=== PATIENT | male | born 1980 | race Caucasian/White ===

== ENCOUNTER 2017-11-26 12:26 | Emergency (ER) | payer OTHER ==
[2017-11-26 12:38] VITALS: BP 126/92; BMI 33.3
[2017-11-26] MEDS ORDERED: KETOROLAC TROMETHAMINE 60 MG/2 ML VIAL IM ONE (13:23)
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
[2017-11-26] MEDS ORDERED: CYCLOBENZAPRINE HCL 10 MG TABLET (FP) ONE (13:27)
[2017-11-26] MEDS ORDERED: KETOROLAC TROMETHAMINE 60 MG/2 ML VIAL ONE (13:27)
[2017-11-26 13:43] VITALS: PULSE 87; TEMP 99.3
[2017-11-26] MEDS ORDERED: CYCLOBENZAPRINE HCL 5 MG TABLET PO SCH (14:00)
== END 2017-11-26 13:56 | disposition home or self-care (01) ==
LOC: JERFT 12:26 → JER 12:26
PROC: 3E0233Z Introduction of Anti-inflammatory into Muscle, Percutaneous Approach (ICD-10-PCS; principal; 2017-11-26)
DX: S39.012A Strain of muscle, fascia and tendon of lower back, initial encounter (principal); X50.0XXA Overexertion from strenuous movement or load, initial encounter; Y93.89 Activity, other specified; Y92.89 Other specified places as the place of occurrence of the external cause; Y99.0 Civilian activity done for income or pay
CPT/HCPCS: 99282-25

== ENCOUNTER 2022-05-07 14:39 | Emergency (ER) | payer OTHER ==
[2022-05-07 15:01] VITALS: BP 130/92; PULSE 109; RESP 18; TEMP 98; BMI 30.8
[2022-05-07] MEDS ORDERED: ACETAMINOPHEN 500 MG TABLET (FP) PO ONE (15:46)
[2022-05-07] MEDS ORDERED: ACETAMINOPHEN 500 MG TABLET (FP) ONE (16:30)
[2022-05-07] MEDS ORDERED: KETOROLAC TROMETHAMINE 30 MG/1 ML VIAL IM ONE (16:35)
[2022-05-07] MEDS ORDERED: KETOROLAC TROMETHAMINE 30 MG/1 ML VIAL ONE (16:36)
== END 2022-05-07 18:08 | disposition home or self-care (01) ==
LOC: JERFT 14:39
PROC: 3E0234Z Introduction of Serum, Toxoid and Vaccine into Muscle, Percutaneous Approach (ICD-10-PCS; principal; 2022-05-07)
DX: M54.2 Cervicalgia (principal); G44.319 Acute post-traumatic headache, not intractable
CPT/HCPCS: 70450-TC; 72125-TC; 99284-25